=== PATIENT | female | born 1960 | race Caucasian/White ===

== ENCOUNTER 2020-12-07 14:52 | Emergency (ER) | payer OTHER, SELFPAY ==
[2020-12-07 15:01] VITALS: BP 126/68; PULSE 97; RESP 18; TEMP 37.1; O2SAT 100
--- NOTE | 2020-12-07 15:20 | ED.EAR ---
HPI - Ear Problem General Chief complaint: Ear Stated complaint: Possible Ear Infection Time Seen by Provider: 12/07/20 14:55 Source: patient Mode of arrival: ambulatory Limitations: no limitations History of Present Illness HPI Narrative: 60-year-old female presents to [facility] with complaints of popping sensation to her right ear for the past year. Patient reports that she has been taking Zyrtec daily. Patient reports that she ran of her Flonase approximately 6 months ago. Patient states that she does have a history of seasonal allergies. Patient reports that she went to [facility] today for a hearing test which she passed but was informed that they saw possible pus to her right ear. Patient denies ear drainage, ear pain, fever, bodies, chills, nausea, vomiting, diarrhea, cough, runny nose or nasal congestion. MD Complaint: other ( popping sensation ) Location: right ear Duration: intermittent Discharge from ear: Reports no Related Data Home Medications Medication Instructions Recorded Confirmed aspirin 81 mg tablet,delayed 81 mg PO DAILY 06/26/19 12/07/20 release levothyroxine 150 mcg capsule 150 mcg PO DAILY 06/26/19 12/07/20 cholecalciferol (vitamin D3) 25 25 mcg PO DAILY 11/17/20 12/07/20 mcg (1,000 unit) capsule coenzyme Q10 100 mg capsule 200 mg PO DAILY cap 11/17/20 12/07/20 methylprednisolone 4 mg tablet 4 mg PO DAILY 11/17/20 11/17/20 multivit with 1 tablet PO DAILY 11/17/20 12/07/20 eqnbvnhw-amhw-WI-lutein 8 mg iron-400 mcg-300 mcg tablet ondansetron HCl 4 mg tablet 4 mg PO Q8H PRN 11/17/20 11/17/20 atorvastatin 80 mg PO DAILY 12/07/20 12/07/20 losartan-hydrochlorothiazide 100 tablet PO DAILY 12/07/20 12/07/20 meloxicam 7.5 mg PO DAILY 12/07/20 12/07/20 Allergies Allergy/AdvReac Type Severity Reaction Status Date / Time acetaminophen Allergy Mild Palpitation Verified 11/17/20 10:43 s amoxicillin Allergy Mild Hives Verified 11/17/20 10:43 diazepam Allergy Mild rash and Verified 11/17/20 10:43 itching oxycodone Allergy Mild Palpitation Verified 11/17/20 10:43 s Review of Systems Constitutional: Constitutional: Denies chills, Denies fatigue, Denies fever(s) and Denies weakness ENT: Denies dysphagia, Denies dizziness, Denies epistaxis, Denies nasal congestion and Denies sore throat Comments: popping sensation to right ear Cardiovascular: Cardiovascular: Denies chest pain, Denies rapid heart rate and Denies radiating jaw, neck or arm pain Respiratory: Respiratory: Denies chest congestion, Denies cough, Denies dyspnea and Denies wheezing Gastrointestinal: Gastrointestinal: Denies abdominal pain, Denies nausea and Denies vomiting PMFSH Past Medical History Medical History Chest pain in adult Dyslipidemia Essential hypertension Pacemaker Surgical History Surgical History History of cholecystectomy History of knee surgery Family History Family History Father Diabetes mellitus Family history of cardiovascular disease Family history of malignant neoplasm of bone Mother Family history of cardiovascular disease Social History Social History Smoking packs per day: 1 Smoking cigarettes per day: 20.0 Years smoked: 25 Smoking pack-years: 25.00 Smoking status: Former smoker Alcohol intake: current Gender identity (if verbalized by the patient): Female Comments At time of signature, I agree with nursing past medical, surgical, social and family history. There is no relevant family history pertinent to the presenting complaint. Exam Const: General: healthy appearing and no acute distress Orientation/consciousness: patient oriented x3 HENMT: Head: normal to inspection Ears: external ears normal, EAC's normal and TM abnormal wth effusion s
== END 2020-12-07 15:31 | disposition home or self-care (01) ==
PROVIDERS: Emergency Provider Nurse Practitioner Family
DX: H69.91 Unspecified Eustachian tube disorder, right ear (principal); Z87.891 Personal history of nicotine dependence; E78.5 Hyperlipidemia, unspecified; I10 Essential (primary) hypertension; Z95.0 Presence of cardiac pacemaker
CPT/HCPCS: 99213; G0463

== ENCOUNTER 2023-07-25 06:17 | Outpatient (CLI) | payer MEDICARE, SELFPAY ==
--- NOTE | 2023-07-16 13:13 | PC.NURSE ---
Pre Radiology instructions Report to the outpatient hany bahena on date 07/25/23 at time _0630 for procedure Time: _0830___ YOU MAY BE MONITORED AT HOSPITAL FOR UP TO 4 HOURS AFTER YOUR PROCEDURE. A visitor will be allowed to accompany the patient into the hospital. You and your visitor will be asked to self-screen and do not enter if you have any COVID symptoms. A mask is OPTIONAL within the hospital. Patients are to have no food or drink 6 hours prior to procedure time (2:30AM ) Driving will be restricted after the procedure, you must have a person to drive you home. Labs will be drawn in preop area and once reviewed, you will be taken to radiology area for procedure. When the procedure is completed, you will be taken to outpatient where you will be monitored for several hours. You may have one visitor in this area. Other than holding anti-coagulants, patient may take other medication(s) as scheduled. Prior to your appointment date patients are instructed to hold anti-coagulants after discussing with ordering provider to stop. If unable to discontinue anti-coagulants please notify radiologist. ? No aspirin or warfarin (Coumadin) for 7 days prior to the procedure. ? No clopidogrel (Plavix), ticagrelor (Brilinta), prasugrel (Effient) or dabigatran (Pradaxa) for 5 days prior to the procedure. ? No rivaroxaban (Xarelto), apixaban (Eliquis), dipyridamole (Aggrenox or Persantine) or cilostazol (Pletal) for 2 days prior to the procedure. Medications to discontinue per physician: ___ASPIRIN HOLD 7 DAYS PRE OP LAST DOSE 07/17/23 Please leave all valuables, including medications, at home the day of procedure. The hospital will not accept responsibility for valuables. Wear comfortable, loose fitting clothing.? Follow any additional instructions given to you from ordering provider. Telephone instructions given to __PATIENT and asked if any additional questions and then verbalized understanding. Patient advised to call scheduling provider office or registration scheduling [phone] if any additional questions.
[2023-07-16 13:19] VITALS: BMI 36.3
[2023-07-25] VITALS (10 sets, daily range): BP systolic 97–135; BP diastolic 47–77; PULSE 68–85; RESP 16; TEMP 36.7; O2SAT 98–100
--- NOTE | ~2023-07-25 | XR_ITS ---
EXAMINATION: 1. CT lumbar spine w con 2. XR myelogram spine lumbosacral DATE: 07/25/2023 09:20 INDICATION: Spinal stenosis, lumbar region with neurogenic claudication. TECHNIQUE: The procedure including the risks, benefits, and alternatives was discussed with the patie nt. Risks discussed included spinal headache, bleeding, and infection. The patient understood the ris ks and agreed to proceed. A timeout was performed to verify the patient's name, date of , and procedure to be performed. The skin overlying the L2-L3 level was prepped and draped in usual steri le fashion. Subcutaneous 1% lidocaine was used for local anesthesia. A 20 gauge spinal needle was a dvanced under fluoroscopic guidance. 17 mL Omnipaque 180 was injected. The needle was removed and the entry site was cleaned and dressed. There were no immediate complications. Fluoroscopy exposure keyana e was 0.8 minutes. The total number of images was 10. Computed tomography (CT) of the lumbar spine wa s performed without intravenous contrast. Automated exposure control and iterative reconstruction meg hnique were employed. The dose-length product was 1279.64 mGy-cm. COMPARISON: None FINDINGS: LUMBAR MYELOGRAM: There is indentation of the thecal sac at multiple levels that will be further desc ribed on the post myelogram CT. POST MYELOGRAM LUMBAR SPINE CT: There are changes of cholecystectomy. There is calcified atheroscler osis of the aorta and many of the other arteries. There is 7 degrees levocurvature of lumbar spine. T here is 3 mm retrolisthesis of T12 on L1, 4 mm anterolisthesis of L4 on L5, and 3 mm anterolisthesis of L5 on S1. Vertebral body heights are normal. There is severely decreased disc height at T9-T10, mo derately decreased disc height at T10-T11, mildly decreased disc height at T11-T12, T12-L1, and L2-L3 , moderately decreased disc height at L3-L4, mildly decreased disc height at L4-L5, and severely decr eased disc height at L5-S1. The spinal cord morphology is normal. The conus medullaris is at L1. Ther e is Baastrup disease at L2-L3, L3-L4, and L4-L5. The following disc levels are specifically discusse d: L1-L2: There is a central protrusion. There is severe right and mild left facet joint osteoarthritis. There is no neural foraminal stenosis. There is mild central canal stenosis. L2-L3: The disc is bulging. There is mild bilateral facet joint osteoarthritis. There is mild bilater al neural foraminal stenosis. There is mild central canal stenosis. L3-L4: The disc is bulging. There is severe right and moderate left facet joint osteoarthritis. There is mild bilateral neural foraminal stenosis. There is mild central canal stenosis. L4-L5: The disc is bulging. There is severe bilateral facet joint osteoarthritis. There is mild bilat eral neural foraminal stenosis. There is severe central canal stenosis. L5-S1: The disc does not extend beyond the endplate margin. There is ankylosis of the facet joints wi th mild hypertrophy. There is mild bilateral neural foraminal stenosis. There is no central canal garrett nosis. IMPRESSION: 1. Severe central canal stenosis at L4-L5. Otherwise moderate lumbar spondylosis. Reviewed, dictated and finalized at location A. [employer] IMPRESSION: 1. Severe central canal stenosis at L4-L5. Otherwise moderate lumbar spondylosi s.
[2023-07-25 07:36] LABS: Basophils Percent Auto 0.4 % (0.2-1.2); Eosinophils Absolute Auto 0.1 K/mm3 (0-0.3); Eosinophils Percent Auto 0.8 % (0-4.4); Hematocrit 40.4 % (37.0-47.0); Hemoglobin 13.1 g/dL (12.0-15.0); Immature Granulocyte Absolute 0.03 K/mm3 (0.00-0.031); Immature Granulocyte Percent A 0.4 % (0-0.5); Lymphocytes Absolute Auto 2.68 K/mm3 (0.9-3.2); Lymphocytes Percent Auto 36.6 % (18.3-44.2); Mean Corpuscular HGB Conc 32.4 g/dl (32-36); Mean Corpuscular Hemoglobin 30.2 pg (26-34); Mean Corpuscular Volume 93.1 fl (80-100); Mean Platelet Volume 9.2 fl (7.4-10.4); Monocytes Absolute Auto 0.6 K/mm3 (0.1-0.6); Monocytes Percent Auto 8.2 % (2.6-8.5); Neutrophils Absolute Auto 3.9 K/mm3 (1.3-6.7); Neutrophils Percent Auto 53.6 % (45.5-73.1); Platelet Count Result 271 k/mm3 (150-375); Red Blood Count 4.34 M/mm3 (4.2-5.4); Red Cell Distribution Width 13.1 % (11.5-14.5); White Blood Count 7.3 K/mm3 (4.5-10.0)
[2023-07-25 07:47] LABS: Prothrombin Time 13.1 Seconds (11.1-14.7)
== END 2023-07-25 11:55 | disposition home or self-care (01) ==
PROVIDERS: PCP Family Medicine; Referring Provider Physician Assistant; Visit Provider Radiology Diagnostic Radiology
DX: M43.16 Spondylolisthesis, lumbar region (principal); M48.062 Spinal stenosis, lumbar region with neurogenic claudication
CPT/HCPCS: 36415; 62304; 72132; 85025; 85610; Q9965

== ENCOUNTER 2023-09-11 11:00 | Outpatient (CLI) | payer MEDICARE, SELFPAY ==
--- NOTE | ~2023-09-11 | XR_ITS ---
Lumbosacral Spine: AP and lateral views Clinical History: Pain Findings: No acute fracture seen. 15 mm anterolisthesis of L4 over L5 present. There is severe facet arthropathy at L4-L5 and L5-S1. There is moderate to advanced degenerative disc narrowing at L5-S1. T he sacroiliac joints are normally outlined. Impression: 15 mm anterolisthesis of L4 over L5. Degenerative spondylosis of the lower lumbar spine, as detailed above. Reviewed, dictated and finalized at location M. Impression: 15 mm anterolisthesis of L4 over L5. Degenerative spondylosis of the lower lumbar spine, as detailed above.
== END 2023-09-11 11:01 | disposition home or self-care (01) ==
LOC: ANHIMG 11:03
PROVIDERS: PCP Family Medicine; Visit Provider Physician Assistant
DX: M43.16 Spondylolisthesis, lumbar region (principal); M47.896 Other spondylosis, lumbar region
CPT/HCPCS: 72110

== ENCOUNTER 2024-01-24 08:30 | Outpatient (CLI) | payer MEDICARE, SELFPAY ==
[2024-01-24 09:33] LABS: Alanine Aminotransferase 19 U/L (6-35); Albumin Level 4.2 g/dL (3.5-5.1); Alkaline Phosphatase 117 U/L (38-126); Anion Gap 10 mmol/L (4-12); Aspartate Amino Transferase 34 U/L (14-36); Bilirubin,Total 0.8 mg/dL (0.2-1.3); Blood Urea Nitrogen 15 mg/dL (7-17); Calcium 9.1 mg/dL (8.4-10.2); Carbon Dioxide 27 mmol/L (22-30); Chloride 99 mmol/L (98-107); Cholesterol 137 mg/dL (0-200); Estimated Glomerular Filt Rate 50; Glucose 95 mg/dL (65-110); HDL Direct 63 mg/dL; Magnesium 1.8 mg/dL (1.6-2.3); Potassium 4.1 mmol/L (3.4-5.0); Sodium 136 mmol/L (137-145); Triglycerides 83 mg/dL (<150)
[2024-01-24 09:44] LABS: LDL Cholesterol Direct 50 mg/dL
== END 2024-01-24 08:31 | disposition home or self-care (01) ==
LOC: ANHLAB 08:34
PROVIDERS: PCP Internal Medicine; Visit Provider Internal Medicine Cardiovascular Disease
DX: E78.5 Hyperlipidemia, unspecified (principal)
CPT/HCPCS: 36415; 80053; 80061; 83735